=== PATIENT | male | born 1980 | race Caucasian/White ===

== ENCOUNTER 2019-01-27 07:26 | Emergency (ER) | payer BC ==
[~2019-01-27 07:26] MED LIST: HYDACE5 PO; POLTRIOPSO OD; RXHYDACE PO; SUMA25 PO
== END 2019-01-27 08:36 | disposition left against medical advice (07) ==
LOC: ER 07:26
DX: Z53.21 Procedure and treatment not carried out due to patient leaving prior to being seen by health care provider (principal)